=== PATIENT | female | born 1965 | race Caucasian/White ===

== ENCOUNTER 2016-10-22 11:34 | Emergency (ER) | payer OTHER ==
[~2016-10-22] VITALS: Ht 162.6 cm; Wt 65.0 kg
[2016-10-22 11:36] VITALS: BP 138/75; PULSE 82; RESP 20; TEMP 98.3; O2SAT 95
[2016-10-22] MEDS ORDERED: SUBO2MIS SL (11:42)
[2016-10-22] MEDS ORDERED: EFFE150C PO (11:42)
--- NOTE | 2016-10-22 11:51 | PD ---
HPI Chief Complaint: Cold / Flu Symptoms Time Seen by Provider: 11:51 Travel History International Travel<30 days: No Contact w/Intl Traveler<30days: No Traveled to known affect area: No History of Present Illness HPI 51-year-old female presents to the emergency Department with complaint of nasal congestion, ear pain, throat pain, chest congestion, wheezing, cough for over a week. History of asthma and has been using her albuterol inhaler with good relief. Denies chest tightness, chest pain, shortness of breath. Reports tobacco use. Denies fever or vomiting. Denies lump and throat, difficulty swallowing, unusual drooling. Has been using [id number] cough and cold medications for symptom management. No known relieving or aggravating factors. No known allergies. Has no other medical complaints. Symptoms are mild in severity. No other modifying factors or associated signs and symptoms. PFSH Past Medical History Asthma: Yes Social History Tobacco Use: Yes Allergies-Medications (Allergen,Severity, Reaction): Coded Allergies: No Known Allergies (Unverified , 10/22/16) Reported Meds & Prescriptions Reported Meds & Active Scripts Active Deltasone (Prednisone) 20 Mg Tab 40 Mg PO DAILY 4 Days start 10/23/2016 Proair Hfa 8.5 GM Inh (Albuterol Sulfate) 90 Mcg/Act Aer 2 Puff INH Q4-6H PRN 108 mcg/actuation Azithromycin 500 Mg Tab 500 Mg PO DAILY Reported Suboxone Sublingual Film (Buprenorphine-Naloxone Sublingual Film) 2-0.5 Mg Film 1 Film SL Unique ID number required: Effexor XR 24 HR (Venlafaxine HCl) 150 Mg Cap 150 Mg PO DAILY Review of Systems Except as stated in HPI: all other systems reviewed are Neg Physical Exam Narrative GENERAL: Well-nourished, well-developed female patient, in no acute distress; afebrile, nontoxic-appearing SKIN: Warm and moist. HEAD: Atraumatic. Normocephalic. EYES: Pupils equal and round. No scleral icterus. No injection or drainage. ENT: Mucosa pink and moist. No erythema or exudates. No uvular edema. No uvular , palatal, or tonsillar deviation. Airway patent. EARS: Bilateral pinnae and external canals appear within normal limits. Bilateral tympanic membranes without erythema, dullness or perforation. NECK: Trachea midline. No lymphadenopathy. CARDIOVASCULAR: Regular rate and rhythm. No murmur appreciated. RESPIRATORY: No accessory muscle use. Lungs sounds with diffuse wheezing throughout on auscultation. Breath sounds equal bilaterally. No audible wheezing. No retractions or tachypnea. GASTROINTESTINAL: Flat. MUSCULOSKELETAL: No obvious deformities. No clubbing. No cyanosis. No edema. NEUROLOGICAL: Awake and alert. Oriented 3. No obvious cranial nerve deficits. Motor grossly within normal limits. Normal speech. Moves all extremities. 5/5 strength to all extremities. PSYCHIATRIC: Appropriate mood and affect; insight and judgment normal. Data Data Last Documented VS Vital Signs Date Time Temp Pulse Resp B/P (MAP) Pulse Ox O2 Delivery O2 Flow Rate FiO2 10/22/16 11:36 98.3 82 20 138/75 (96) 95 Room Air Orders Orders Prednisone (Deltasone) (10/22/16 12:00) Albuterol-Ipratropium Neb (Duoneb Neb) (10/22/16 12:00) [facility] Medical Decision Making Medical Screen Exam Complete: Yes Emergency Medical Condition: Yes Medical Record Reviewed: Yes Differential Diagnosis Upper respiratory infection, asthma exacerbation, bronchitis, pneumonia Narrative Course 51-year-old female, with history of asthma, with cough and cold symptoms for over a week and asthma exacerbation. Patient is in no acute distress and without retractions or tachypnea. Lungs with diffuse wheezing throughout. No audible wheezing. Oxygen saturation 95% on room air. Patient denies chest tightness or shortness of breath. Has been using albuterol inhaler at home. DuoNeb, Deltasone administered in the ER. 1233: Patient reports improvement in symptoms. Lungs are with mild wheezing throughout. I did offer the patient another DuoNeb treatment and she declined. She denies chest tightness or shortness of breath. Pro-air inhaler, Deltasone , azithromycin prescribed for home. Instructed patient to follow up with primary care provider. Patient verbalizes understanding and agreement with treatment plan. Patient is medically cleared and stable for discharge. Discussed reasons to return to the emergency department. Patient agrees with treatment plan. The patients vital signs are stable and the patient is stable for outpatient follow-up and treatment. Patient discharged home, stable and in no acute distress. Diagnosis Primary Impression: Asthma exacerbation Additional Impression: URI (upper respiratory infection) Qualified Codes: J06.9 - Acute upper respiratory infection, unspecified Referrals: Primary Care Physician Patient Instructions: Asthma (ED), Cold Symptoms (ED), General Instructions, Safe Use of Cough and Cold Medicines (ED) Departure Forms: Tests/Procedures, Work Release Enter return to work date: Oct 24, 2016 Additional Instructions: Antibiotics as prescribed Use Albuterol inhaler as prescribed Take oral steroids as prescribed and complete full course [id number] decongestants or antihistamines as directed and as needed for symptom management Your cough can last 4-6 weeks Drink plenty of fluids to prevent dehydration Use hot air humidifier to decrease cough exacerbation Turn off ceiling fans and sleep with head of bed elevated Avoid triggers such as second hand smoke, dust, known allergens Follow-up with your primary care provider Return to the emergency department immediately with worsening of symptoms Med/Other Pt SpecificInfo: Prescription(s) given Scripts Prednisone (Deltasone) 20 Mg Tab 40 MG PO DAILY for 4 Days, #30 TAB 0 Refills start 10/23/2016 Prov: Brook English 10/22/16 Albuterol 8.5 GM Inh (Proair Hfa 8.5 GM Inh) 90 Mcg/Act Aer 2 PUFF INH Q4-6H Y for SOB/WHEEZING, #1 INHALER 0 Refills 108 mcg/actuation Prov: Brook English 10/22/16 Azithromycin (Azithromycin) 500 Mg Tab 500 MG PO DAILY for Infection, #5 TAB 0 Refills Prov: Brook English 10/22/16 Disposition: 01 DISCHARGE HOME Condition: Stable Brook English Oct 22, 2016 11:51
[2016-10-22] MEDS ORDERED: RESP: ALBUTEROL 2.5 MG/IPRATROPIUM 0.5 MG NEB (SCH) INH ONE (12:00)
[2016-10-22] MEDS ORDERED: AZIT500T2 PO ×2 (12:00→12:27)
[2016-10-22] MEDS ORDERED: predniSONE 20 MG TAB PO ONE (12:00)
[2016-10-22] MEDS ORDERED: PRED-503 PO ×2 (12:00→12:27)
[2016-10-22] MEDS ORDERED: ALBUAER3 INH ×2 (12:00→12:27)
== END 2016-10-22 12:44 | disposition home or self-care (01) ==
LOC: NEPK 11:34
DX: J45.901 Unspecified asthma with (acute) exacerbation (principal); J06.9 Acute upper respiratory infection, unspecified; Z72.0 Tobacco use; Z87.09 Personal history of other diseases of the respiratory system
CPT/HCPCS: 94664; 99284; J7512